=== PATIENT | female | born 1955 | race African-American/Black ===

== ENCOUNTER → 2017-07-27 | Outpatient (CLI) | payer MEDICARE ==
--- NOTE | 2017-07-27 16:39 | RAD ---
LUMBAR SPINE MIN 4V (AP, lateral, flexion, and extension views) Clinical Indication: SPONDYLOLISTHESIS. Comparison: None. Findings: There are 5 nonrib-bearing lumbar-type vertebral bodies. The normal lumbar lordosis is preserved. 0.7 cm anterolisthesis of L4 on L5 which decreases to 0.5 cm during extension but is not significantly changed during flexion. Mild multilevel degenerative changes of the visualized spine. Right upper quadrant abdominal surgical clips. IMPRESSION: 1. 0.7 cm anterolisthesis of L4 on L5 which decreases to 0.5 cm during extension but is not significantly changed during flexion. 2. Mild multilevel degenerative changes of the visualized spine.
== END | disposition home or self-care (01) ==
LOC: RAD 11:34
PROVIDERS: ATTEND Neurological Surgery
DX: M43.10 Spondylolisthesis, site unspecified (principal); M47.896 Other spondylosis, lumbar region
CPT/HCPCS: 72110